=== PATIENT | male | born 1985 | race Caucasian/White ===

== ENCOUNTER 2017-03-15 19:37 | Emergency (ER) | payer SELFPAY ==
[~2017-03-15] VITALS: Ht 185.4 cm; Wt 95.3 kg
[~2017-03-15 19:37] MED LIST: AMOX500C2 PO
--- NOTE | 2017-03-15 20:10 | NUR ---
Pt to room, pt c/o abscess to the left lower jaw for two days with increased pain. Resp even and unlabored. Airway patent, no distress noted. Pt admits to needing dental work done on that side and will have insurance after 03/25 to get it fixed. Pt resting in position of comfort for self. Awaiting further eval.
[2017-03-15] MEDS ORDERED: KETOROLAC TROMETHAMINE 15 MG INJ ONE (21:23)
[2017-03-15] MEDS ORDERED: LEVOFLOXACIN 750MG/D5W 150 ML IV ONE (21:24)
[2017-03-15] MEDS ORDERED: LIDOCAINE HCL 1% 20 ML VIAL IJ ONE (22:00)
--- NOTE | 2017-03-15 22:16 | NUR ---
at bedside for I/D
--- NOTE | 2017-03-15 22:47 | NUR ---
Procedure completed. Pt stable for discharge per MD. Donnie applied. Pt given ACI. Pt verbalized understanding of dc instructions. Pt ambulated out of ER with steady gait.
[2017-03-15 22:49] VITALS: BP 124/68
== END 2017-03-15 22:50 | disposition home or self-care (01) ==
LOC: ER 19:38
DX: L02.01 Cutaneous abscess of face (principal); F17.200 Nicotine dependence, unspecified, uncomplicated
CPT/HCPCS: A4663; J1885; J1956; J3490